=== PATIENT | male | born 1940 | race Caucasian/White ===

== ENCOUNTER 2016-07-17 22:25 | Inpatient (IN) | payer MEDICARE, MEDICAID ==
[2016-07-17] MEDS ORDERED: Acetaminophen 325 MG Tab PO ONE (23:13)
--- NOTE | 2016-07-17 23:16 | EDM.PDOC ---
ED HISTORY OF PRESENT ILLNESS - General Chief Complaint: Respiratory Problem Stated Complaint: COPD Time Seen by Provider: 07/17/16 23:14 Source: Reports: Patient History Limitations: Reports: Other (pt is not able to give a good history. ) - History of Present Illness INITIAL COMMENTS - FREE TEXT/NARRATIVE: pt has a fever of 102 . He has a tachy rhythm and has been breathing rapidly. Timing/Duration: Reports: Hour(s):, Getting worse Severity: moderate Location, General: Reports: chest Associated Symptoms: Reports: cough, diaphoresis, fever/chills, shortness of breath - Related Data Allergies/ADRs: Allergies Allergy/AdvReac Type Severity Reaction Status Date / Time Cephalosporins Allergy Unknown Cannot Verified 07/17/16 23:50 Remember clozapine [From Clozaril] Allergy Unknown Cannot Verified 07/17/16 23:50 Remember erythromycin base Allergy Unknown Cannot Verified 07/17/16 23:50 [Erythromycin Base] Remember Penicillins Allergy Unknown Cannot Verified 07/17/16 23:50 Remember Home Meds: Home Meds Acetaminophen [Tylenol] 650 mg PO TID 01/05/13 [History] Bisacodyl [Dulcolax] 10 mg RECTAL DAILY PRN 01/05/13 [History] Docusate Sodium 100 mg PO BID 01/05/13 [History] Furosemide [Lasix] 40 mg PO BID 01/05/13 [History] Ketoconazole 1 appful TOP ASDIRECTED 01/05/13 [History] LORazepam 1 mg PO BID PRN 01/05/13 [History] Loratadine [Claritin] 10 mg PO DAILY 01/05/13 [History] OLANZapine [ZyPREXA] 5 mg PO TID PRN 01/05/13 [History] Omeprazole 20 mg PO DAILY 01/05/13 [History] Polyethylene Glycol 3350 [MiraLAX] 17 gm PO DAILY 01/05/13 [History] Psyllium Husk/Aspartame [Metamucil Sugar Free Powder] 2 tsp PO DAILY 01/05/13 [ History] Simvastatin [Zocor] 20 mg PO BEDTIME 01/05/13 [History] Terbinafine [LamISIL AT 1% Crm] 1 percent TOP ASDIRECTED PRN 01/05/13 [History] Triamcinolone Acetonide [Triamcinolone Acetonide 0.1% Crm] 15 gm TOP DAILY PRN 01/05/13 [History] Oxybutynin 5 mg PO TID 04/17/15 [History] predniSONE [Prednisone] 5 mg PO DAILY 04/17/15 [History] Magnesium Hydroxide [Milk of Magnesia] 30 ml PO DAILY PRN 09/25/15 [History] Na Phos,M-B/Na Phos,Di-Ba [Fleet Enema] 1 enema RECTAL BID PRN 02/05/16 [History ] Zinc Oxide/Aloe Vera/Vitamin E [Balmex 11.3% Diaper Rash] 1 gm TP BID 02/05/16 [ History] Albuterol/Ipratropium [DuoNeb 3.0-0.5 MG/3 ML] 3 ml INH TID 05/31/16 [History] Budesonide [Pulmicort] 0.25 mg INH BID 05/31/16 [History] Cefdinir [Omnicef 250 MG/5 ML Susp] 250 mg PO BID 05/31/16 [History] Metoprolol Tartrate 25 mg PO BID 05/31/16 [History] Valproic Acid (As Sodium Salt) [Valproic Acid] 20 ml PO PCBREAKFAST 05/31/16 [ History] Valproic Acid (As Sodium Salt) [Valproic Acid] 40 ml PO PCDINNER 05/31/16 [ History] Tobramycin [Nebcin] 480 mg IV Q24H #10 dose 06/05/16 [Rx] Past Medical History HEENT History: Reports: Allergic rhinitis, Impaired vision Cardiovascular History: Reports: Heart Failure, High cholesterol, Hypertension Respiratory History: Reports: Sleep apnea, SOB, Other (see below) Other Respiratory History: c pap. home O2 as needed Gastrointestinal History: Reports: Chronic constipation, GERD Other Gastrointestinal History: intucception Genitourinary History: Reports: Other (see below) Other Genitourinary History: Long standing rodriguez catheter. Musculoskeletal History: Reports: Back pain, chronic Neurological History: Reports: Other (see below) Other Neuro History: Brain atrophy Psychiatric History: Reports: Schizophrenia Endocrine/Metabolic History: Reports: Obesity/BMI 30+ Oncologic (Cancer) History: Reports: Other (see below) Other Oncologic History: skin cancer Dermatologic History: Reports: Other (see below) Other Dermatologic History: rashes - Infectious Disease History Infectious Disease History: Reports: Chicken pox Other Infectious Disease History: unable to obtain - Past Surgical History Head Surgeries/Procedures: Reports: Craniotomy Other Neurological Surgeries/Procedures: l parietal craniotomy for evacuation of subdural hematoma Social & Family History - Family History Family Medical History: Unobtainable - Tobacco Use Smoking Status *Q: Unknown Ever Smoked Used Tobacco, but Quit: Yes Month Tobacco Last Used: unknown Second Hand Smoke Exposure: No - Caffeine Use Caffeine Use: Reports: Coffee Other Caffeine Use: unknown - Recreational Drug Use Recreational Drug Use: No - Living Situation & Occupation Living situation: Reports: single Occupation: disabled (disabled, lives in [employer] ED ROS GENERAL - Review of Systems Review Of Systems: See Below Constitutional: Reports: fever, chills, malaise, diaphoresis HEENT: Reports: No symptoms Respiratory: Reports: shortness of breath, other ( rapid resperations. ) Cardiovascular: Reports: Palpitations, Other (pt has a rapid heart rate. ) Endocrine: Reports: no symptoms GI/Abdominal: Reports: No symptoms : Reports: other ( indwelling rodriguez cath. ) Musculoskeletal: Reports: no symptoms Skin: Reports: no symptoms Neurological: Reports: trouble speaking ED EXAM, GENERAL - Physical Exam Exam: See Below Free Text/Narrative:: pt arrived with a fever of 102. He has a tachy. His resp were rapid. Exam Limited By: No limitations General Appearance: alert, anxious, moderate distress Ears: normal TMs Nose: normal inspection Throat/Mouth: Normal inspection Head: atraumatic Neck: normal inspection Respiratory/Chest: other (pt is breathing rapidly) Cardiovascular: regular rate, rhythm, tachycardia, other (pt is having some ectopics. ) GI/Abdominal: soft, non tender, other ( abdoman is large and a little difficult to evaluate. ) (Male) Exam: Other (pt has a rodriguez cath in place. ) Rectal (Males) Exam: Deferred Back Exam: normal inspection Extremities: normal inspection Neurological: alert Course - Vital Signs Last Recorded V/S: Last Vital Signs Temp 39.3 C H 07/17/16 23:27 Pulse 144 H 07/17/16 23:27 Resp 16 07/17/16 23:27 BP 135/106 H 07/17/16 23:27 Pulse Ox 91 L 07/17/16 23:27 - Orders/Labs/Meds Orders: Active Orders 24 hr Category Date Time Status EKG Documentation Completion [RC] ASDIRECTED Care 07/17/16 23:17 Active Chest 1V Frontal [CR] Stat Exams 07/17/16 22:37 Taken CULTURE BLOOD [BC] Urgent Lab 07/17/16 23:12 Received CULTURE BLOOD [BC] Urgent Lab 07/17/16 23:15 Received CULTURE URINE [RM] Stat Lab 07/17/16 23:50 Uncollected LACTIC ACID [CHEM] Stat Lab 07/17/16 23:59 Ordered Levofloxacin/Dextrose 5%-Water [Levaquin in D5W 500 MG/ Med 07/17/16 23:52 Ordered 100 ML] 500 mg Premix Bag 1 bag IV ONETIME Sodium Chloride 0.9% [Normal Saline] 1,000 ml Med 07/17/16 23:45 Ordered IV ASDIRECTED Blood Culture x2 Reflex Set [OM.PC] Urgent Oth 07/17/16 22:47 Ordered EKG 12 Lead [EK] Routine Ther 07/17/16 23:17 Ordered Medication Orders Sodium Chloride (Normal Saline) 1,000 mls @ 400 mls/hr IV ASDIRECTED VERONICA Levofloxacin/Dextrose 500 mg/ (Premix) 100 mls @ 100 mls/hr IV ONETIME ONE Stop: 07/18/16 00:51 Labs: Laboratory Tests 07/17/16 07/17/16 07/17/16 Range/Units 22:37 22:37 23:05 WBC 15.4 H (4.5-11.0) K/uL RBC 4.40 (4.30-5.90) M/uL Hgb 13.1 (12.0-15.0) g/dL Hct 41.8 (40.0-54.0) % MCV 95 (80-98) fL MCH 30 (27-31) pg MCHC 31 L (32-36) % Plt Count 235 (150-400) K/uL Neut % (Auto) 74 H (36-66) % Lymph % (Auto) 11 L (24-44) % Tyrrell % (Auto) 14 H (2-6) % Eos % (Auto) 1 L (2-4) % Baso % (Auto) 0 (0-1) % Sodium 139 L (140-148) mmol/L Potassium 3.5 L (3.6-5.2) mmol/L Chloride 98 L (100-108) mmol/L Carbon Dioxide 30 (21-32) mmol/L Anion Gap 14.5 H (5.0-14.0) mmol/L BUN 22 H D (7-18) mg/dL Creatinine 1.2 (0.8-1.3) mg/dL Est Cr Clr Drug Dosing 53.24 mL/min Estimated GFR (MDRD) 59 L (>60) Glucose 131 H (74-106) mg/dL Calcium 9.2 (8.5-10.1) mg/dL Total Bilirubin 0.4 (0.2-1.0) mg/dL AST 9 L (15-37) U/L ALT 10 L (12-78) U/L Alkaline Phosphatase 34 L (46-116) U/L C-Reactive Protein 11.33 H (0.0-0.3) mg/dL [id number] Pept (5-125) pg/mL Total Protein 8.4 H (6.4-8.2) g/dL Albumin 2.9 L (3.4-5.0) g/dL Globulin 5.5 H (2.3-3.5) g/dL Albumin/Globulin Ratio 0.5 L (1.2-2.2) Urine Color [place] Urine Appearance Cloudy Urine pH 8.0 (4.5-8.0) Ur Specific [place] 1.015 (1.008-1.030) Urine Protein 30 H (NEGATIVE) mg/dL Urine Glucose (UA) Normal (NEGATIVE) mg/dL Urine Ketones 15 H (NEGATIVE) mg/dL Urine Occult Blood Large (NEGATIVE) Urine Nitrite Positive H (NEGAITVE) Urine Bilirubin Negative (NEGATIVE) Urine Urobilinogen 4 (NORMAL) mg/dL Ur Leukocyte Esterase Large (NEGATIVE) Urine RBC Packed H (0-5) Urine WBC Packed H (0-5) Ur Epithelial Cells Moderate Amorphous Sediment Moderate Urine Bacteria Moderate Urine Mucus Few 07/17/16 Range/Units 23:17 WBC (4.5-11.0) K/uL RBC (4.30-5.90) M/uL Hgb (12.0-15.0) g/dL Hct (40.0-54.0) % MCV (80-98) fL MCH (27-31) pg MCHC (32-36) % Plt Count (150-400) K/uL Neut % (Auto) (36-66) % Lymph % (Auto) (24-44) % Tyrrell % (Auto) (2-6) % Eos % (Auto) (2-4) % Baso % (Auto) (0-1) % Sodium (140-148) mmol/L Potassium (3.6-5.2) mmol/L Chloride (100-108) mmol/L Carbon Dioxide (21-32) mmol/L Anion Gap (5.0-14.0) mmol/L BUN (7-18) mg/dL Creatinine (0.8-1.3) mg/dL Est Cr Clr Drug Dosing mL/min Estimated GFR (MDRD) (>60) Glucose (74-106) mg/dL Calcium (8.5-10.1) mg/dL Total Bilirubin (0.2-1.0) mg/dL AST (15-37) U/L ALT (12-78) U/L Alkaline Phosphatase (46-116) U/L C-Reactive Protein (0.0-0.3) mg/dL [id number] Pept 366 H (5-125) pg/mL Total Protein (6.4-8.2) g/dL Albumin (3.4-5.0) g/dL Globulin (2.3-3.5) g/dL Albumin/Globulin Ratio (1.2-2.2) Urine Color Urine Appearance Urine pH (4.5-8.0) Ur Specific [place] (1.008-1.030) Urine Protein (NEGATIVE) mg/dL Urine Glucose (UA) (NEGATIVE) mg/dL Urine Ketones (NEGATIVE) mg/dL Urine Occult Blood (NEGATIVE) Urine Nitrite (NEGAITVE) Urine Bilirubin (NEGATIVE) Urine Urobilinogen (NORMAL) mg/dL Ur Leukocyte Esterase (NEGATIVE) Urine RBC (0-5) Urine WBC (0-5) Ur Epithelial Cells Amorphous Sediment Urine Bacteria Urine Mucus Meds: Medications Generic Name Dose Route Start Last Admin Trade Name Freq PRN Reason Stop Dose Admin Sodium Chloride 1,000 mls @ 400 mls/hr 07/17/16 23:45 Normal Saline IV ASDIRECTED VERONICA Levofloxacin/Dextrose 500 mg/ 100 mls @ 100 mls/hr 07/17/16 23:52 Premix IV 07/18/16 00:51 ONETIME ONE Discontinued Medications Generic Name Dose Route Start Last Admin Trade Name Reina PRN Reason Stop Dose Admin Acetaminophen 650 mg 07/17/16 23:13 07/17/16 23:25 Tylenol PO 07/17/16 23:14 650 mg NOW ONE Administration - Re-Assessments/Exams Free Text/Narrative Re-Assessment/Exam: 07/18/16 00:06 bnp is up slightly, urine looks infected. His wbc is 15,000. His crp is greater than 11. Lactic acid is pending. Departure - Departure Time of Disposition: 00:07 Disposition: Admitted As Inpatient 68 Condition: fair Clinical Impression: Sepsis, Dehydration Forms: ED Department Discharge Care Plan Goals: admit to Dr De Souza. - My Orders Last 24 Hours: My Active Orders 07/17/16 22:37 Chest 1V Frontal [CR] Stat 07/17/16 22:47 Blood Culture x2 Reflex Set [OM.PC] Urgent 07/17/16 23:12 CULTURE BLOOD [BC] Urgent 07/17/16 23:15 CULTURE BLOOD [BC] Urgent 07/17/16 23:17 EKG Documentation Completion [RC] ASDIRECTED EKG 12 Lead [EK] Routine 07/17/16 23:45 Sodium Chloride 0.9% [Normal Saline] 1,000 ml IV ASDIRECTED 07/17/16 23:50 CULTURE URINE [RM] Stat 07/17/16 23:52 Levofloxacin/Dextrose 5%-Water [Levaquin in D5W 500 MG/100 ML] 500 mg Premix Bag 1 bag IV ONETIME 07/17/16 23:59 LACTIC ACID [CHEM] Stat - Assessment/Plan Last 24 Hours: My Active Orders 07/17/16 22:37 Chest 1V Frontal [CR] Stat 07/17/16 22:47 Blood Culture x2 Reflex Set [OM.PC] Urgent 07/17/16 23:12 CULTURE BLOOD [BC] Urgent 07/17/16 23:15 CULTURE BLOOD [BC] Urgent 07/17/16 23:17 EKG Documentation Completion [RC] ASDIRECTED EKG 12 Lead [EK] Routine 07/17/16 23:45 Sodium Chloride 0.9% [Normal Saline] 1,000 ml IV ASDIRECTED 07/17/16 23:50 CULTURE URINE [RM] Stat 07/17/16 23:52 Levofloxacin/Dextrose 5%-Water [Levaquin in D5W 500 MG/100 ML] 500 mg Premix Bag 1 bag IV ONETIME 07/17/16 23:59 LACTIC ACID [CHEM] Stat
[2016-07-17] MEDS ORDERED: Sodium Chloride 0.9% 1,000 ML IV SCH (23:45)
[2016-07-17] MEDS ORDERED: Levofloxacin/Dextrose 5%-Water 500 MG in Premix Bag 1 BAG IV ONE (23:52)
[2016-07-18] MEDS ORDERED: Promethazine 6.25 MG in Sodium Chloride 0.9% 50 ML IV PRN (00:59)
[2016-07-18] MEDS ORDERED: Potassium Chloride 40 MEQ in Premix Bag 1 BAG IV ONE (01:06)
[2016-07-18] MEDS ORDERED: Acetaminophen 325 MG Tab PO PRN (01:11)
[2016-07-18] MEDS ORDERED: LORazepam 1 MG Tab PO ONE (01:21)
[2016-07-18] MEDS ORDERED: Metoprolol Tartrate 25 MG Tab PO SCH (01:30)
[2016-07-18] MEDS ORDERED: TOBRAMYCIN IV SCH ×2 (01:30→03:00)
[2016-07-18] MEDS ORDERED: SODIUM CHLORIDE 0.9% IV SCH ×2 (01:30→03:00)
[2016-07-18] MEDS ORDERED: Sodium Chloride 0.9% 1,000 ML IV SCH ×3 (01:45→15:00)
--- NOTE | 2016-07-18 02:10 | PCM.HP ---
H&P History of Present Illness - General Date of Service: 07/18/16 Admit Problem/Dx: Admission Diagnosis/Problem Admission Diagnosis/Problem Urosepsis Source of Information: Patient, EMS notes reviewed, assisted records, Old records History Limitations: Reports: Altered mental status, Other - History of Present Illness Initial Comments - Free Text/Narative: 75-year-old male with past medical history of paranoid schizophrenia, hypertension,hyperlipidemia,recurrent urinary tract infection, morbid obesity, obstructive sleep apnea, chronic constipation, COPD, former smoker, idiopathic weakness of bilateral lower extremity came to the ED with the complaining of altered mental status associated with increased temperature. Patient has been living in custodial. Patient today accompanied with consumer experience consultant. As per the consumer experience consultant patient has been suffering with upper respiratory symptoms cough, congestion since last 2 weeks and intermittent fever since last 3 days. The fever was responded to the Tylenol. Patient has a history of recurrent urinary tract infection treated with IV antibiotics. 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 He had breathing difficulty associated with confusion state, with these concerns patient came to the ED. In the ED patient had basic blood work including UA which showed urinary tract infection with nitrites positive. Patient recently admitted into the hospital with similar complaint and diagnosed with Pseudomonas urinary tract infection and treated with meropenem and tobramycin. Patient has been on cefdinir antibiotic prophylaxis medication as outpatient. Patient had indwelling urinary catheter since last approximately 2 years with the concerns of obstructive uropathy. Patient did not follow with any urology in the last 2 years. Patient has significant obesity and has baseline of 6 L oxygen during the nighttime continuously and daytime as needed. Patient is on CPAP machine for sleep apnea. Patient CODE STATUS is DNR/DNI. Onset of Symptoms: Reports: gradual Duration of Symptoms: Reports: Day(s): (2) Location: Reports: other (groin) Quality: Reports: Burning, Dull Severity: moderate Improves with: Reports: None Worsens with: Reports: None Context: Denies: sick contact, activity/exercise, lifting, trauma Associated Symptoms: Reports: fever/chills, malaise, shortness of breath, weakness. Denies: chest pain, cough, diaphoresis, loss of appetite, nausea/ vomiting, rash, seizure, syncope groin Pain Score (Numeric/FACES): 3 - Related Data Allergies/Adverse Reactions: Allergies Allergy/AdvReac Type Severity Reaction Status Date / Time Cephalosporins Allergy Unknown Cannot Verified 07/17/16 23:50 Remember clozapine [From Clozaril] Allergy Unknown Cannot Verified 07/17/16 23:50 Remember erythromycin base Allergy Unknown Cannot Verified 07/17/16 23:50 [Erythromycin Base] Remember Penicillins Allergy Unknown Cannot Verified 07/17/16 23:50 Remember Home Medications: Home Meds Acetaminophen [Tylenol] 650 mg PO TID 01/05/13 [History] Bisacodyl [Dulcolax] 10 mg RECTAL DAILY PRN 01/05/13 [History] Docusate Sodium 10 ml PO BID 01/05/13 [History] Furosemide [Lasix] 40 mg PO BID 01/05/13 [History] Ketoconazole 1 appful TOP ASDIRECTED 01/05/13 [History] LORazepam 1 mg PO BID PRN 01/05/13 [History] Loratadine [Claritin] 10 mg PO DAILY 01/05/13 [History] OLANZapine [ZyPREXA] 5 mg PO TID PRN 01/05/13 [History] Omeprazole 20 mg PO DAILY 01/05/13 [History] Polyethylene Glycol 3350 [MiraLAX] 17 gm PO DAILY 01/05/13 [History] Psyllium Husk/Aspartame [Metamucil Sugar Free Powder] 2 tsp PO DAILY 01/05/13 [ History] Simvastatin [Zocor] 20 mg PO BEDTIME 01/05/13 [History] Terbinafine [LamISIL AT 1% Crm] 1 percent TOP ASDIRECTED PRN 01/05/13 [History] Triamcinolone Acetonide [Triamcinolone Acetonide 0.1% Crm] 15 gm TOP DAILY PRN 01/05/13 [History] Oxybutynin 5 mg PO TID 04/17/15 [History] predniSONE [Prednisone] 5 mg PO DAILY 04/17/15 [History] Magnesium Hydroxide [Milk of Magnesia] 30 ml PO DAILY PRN 09/25/15 [History] Na Phos,M-B/Na Phos,Di-Ba [Fleet Enema] 1 enema RECTAL BID PRN 02/05/16 [History ] Zinc Oxide/Aloe Vera/Vitamin E [Balmex 11.3% Diaper Rash] 1 gm TP BID 02/05/16 [ History] Albuterol/Ipratropium [DuoNeb 3.0-0.5 MG/3 ML] 3 ml INH TID 05/31/16 [History] Budesonide [Pulmicort] 0.25 mg INH BID 05/31/16 [History] Metoprolol Tartrate 25 mg PO BID 05/31/16 [History] Valproic Acid (As Sodium Salt) [Valproic Acid] 20 ml PO PCBREAKFAST 05/31/16 [ History] Valproic Acid (As Sodium Salt) [Valproic Acid] 40 ml PO PCDINNER 05/31/16 [ History] QUEtiapine [SEROquel] 100 mg PO BID 07/17/16 [History] Ketoconazole [Nizoral 2% Crm] 1 applic TOP BID 07/18/16 [History] Past Medical History HEENT History: Reports: Allergic rhinitis, Impaired vision Other HEENT History: no teeth Cardiovascular History: Reports: Heart Failure, High cholesterol, Hypertension Respiratory History: Reports: Sleep apnea, SOB, Other (see below) Other Respiratory History: c pap. home O2 as needed Gastrointestinal History: Reports: Chronic constipation, GERD Other Gastrointestinal History: intucception Genitourinary History: Reports: Other (see below) Other Genitourinary History: Long standing rodriguez catheter. Musculoskeletal History: Reports: Back pain, chronic Neurological History: Reports: Other (see below) Other Neuro History: Brain atrophy Psychiatric History: Reports: Schizophrenia Endocrine/Metabolic History: Reports: Obesity/BMI 30+ Oncologic (Cancer) History: Reports: Other (see below) Other Oncologic History: skin cancer Dermatologic History: Reports: Other (see below) Other Dermatologic History: rashes - Infectious Disease History Infectious Disease History: Reports: Chicken pox Other Infectious Disease History: unable to obtain - Past Surgical History Head Surgeries/Procedures: Reports: Craniotomy Other Neurological Surgeries/Procedures: l parietal craniotomy for evacuation of subdural hematoma Social & Family History - Family History Family Medical History: Unobtainable - Tobacco Use Smoking Status *Q: Unknown Ever Smoked Used Tobacco, but Quit: Yes Month Tobacco Last Used: unknown Second Hand Smoke Exposure: No - Caffeine Use Caffeine Use: Reports: Coffee Other Caffeine Use: unknown - Recreational Drug Use Recreational Drug Use: No - Living Situation & Occupation Living situation: Reports: single Occupation: disabled (disabled, lives in [facility] H&P Review of Systems - Review of Systems: Review Of Systems: See Below General: Reports: fever, chills, malaise, weakness, fatigue, decreased appetite. Denies: night sweats, diaphoresis, weight loss Pulmonary: Reports: Shortness of Breath. Denies: Wheezing, Pleuritic Chest Pain , Cough, Sputum, Hemoptysis Cardiovascular: Reports: dyspnea on exertion. Denies: chest pain, palpitations , orthopnea, PND, edema, claudication, blood pressure problem Gastrointestinal: Reports: Distension. Denies: Abdominal pain, Anorexia, Flatus Genitourinary: Reports: dysuria, burning, pain, incontinence, hematuria. Denies : frequency, penile discharge Skin: Denies: cyanosis, jaundice, pallor Psychiatric: Reports: confusion. Denies: depression, mood lability, anxiety Neurological: Reports: Confusion. Denies: Dizziness, Headache Hematologic/Lymphatic: Denies: anemia, easy bleeding Immunologic: Denies: anaphylaxis Exam - Exam Exam: See Below - Vital Signs Vital Signs: Last Vital Signs Temp 38.5 C H 07/18/16 01:01 Pulse 144 H 07/17/16 23:27 Resp 23 H 07/18/16 01:01 BP 137/91 H 07/18/16 01:30 Pulse Ox 92 L 07/18/16 01:30 Weight: 101.9 kg - Exam Quality Assessment: supplemental oxygen General: alert, moderate distress. No: oriented, cooperative Neck: supple, trachea midline Lungs: Clear to auscultation, Normal respiratory effort Cardiovascular: irregular rhythm, tachycardia. No: regular rate, regular rhythm , diastolic murmur Abdomen: distention, hypoactive bowel sounds. No: guarding, rigidity, rebound, tenderness, absent bowel sounds (Male) Exam: Normal inspection, Other (Rodriguez is in place). No: No hernia Extremities: normal inspection - Patient Data Lab Results last 24 hrs: Laboratory Results - last 24 hr 07/18/16 Range/Units 01:08 Magnesium 1.8 (1.8-2.4) mg/dL Troponin I < 0.017 (0.000-0.056) ng/mL Result Diagrams: 07/18/16 04:45 07/18/16 04:45 *Q Meaningful Use (ADM) - VTE *Q VTE Criteria *Q: - Stroke *Q Stroke Criteria *Q: - AMI *Q AMI Criteria *Q: - Problem List (1) Paranoid schizophrenia SNOMED Code(s): 38351487 ICD Code: F20.0 - PARANOID SCHIZOPHRENIA Status: Acute Current Visit: Yes (2) Hypokalemia SNOMED Code(s): 22477348 ICD Code: E87.6 - HYPOKALEMIA Status: Acute Current Visit: Yes (3) Hypertension SNOMED Code(s): 39406564 ICD Code: I10 - ESSENTIAL (PRIMARY) HYPERTENSION Status: Acute Current Visit: Yes (4) Hyperlipidemia SNOMED Code(s): 34949131 ICD Code: E78.5 - HYPERLIPIDEMIA, UNSPECIFIED Status: Acute Current Visit : Yes (5) Anxiety and depression SNOMED Code(s): 585700098 ICD Code: F41.9 - ANXIETY DISORDER, UNSPECIFIED; F32.9 - MAJOR DEPRESSIVE DISORDER, SINGLE EPISODE, UNSPECIFIED Status: Acute Current Visit: Yes (6) Obstructive sleep apnea SNOMED Code(s): 64063426 ICD Code: G47.33 - OBSTRUCTIVE SLEEP APNEA (ADULT) (PEDIATRIC) Status: Acute Current Visit: Yes (7) COPD (chronic obstructive pulmonary disease) SNOMED Code(s): 50862296 ICD Code: J44.9 - CHRONIC OBSTRUCTIVE PULMONARY DISEASE, UNSPECIFIED Status : Acute Current Visit: Yes (8) Complicated urinary tract infection SNOMED Code(s): 51873455 ICD Code: N39.0 - URINARY TRACT INFECTION, SITE NOT SPECIFIED Status: Acute Current Visit: Yes (9) Severe sepsis SNOMED Code(s): 16713811 ICD Code: A41.9 - SEPSIS, UNSPECIFIED ORGANISM; R65.20 - SEVERE SEPSIS WITHOUT SEPTIC SHOCK Status: Acute Current Visit: Yes (10) Supraventricular tachycardia SNOMED Code(s): 8693823 ICD Code: I47.1 - SUPRAVENTRICULAR TACHYCARDIA Status: Acute Current Visit: Yes (11) GERD (gastroesophageal reflux disease) SNOMED Code(s): 664808472 ICD Code: K21.9 - GASTRO-ESOPHAGEAL REFLUX DISEASE WITHOUT ESOPHAGITIS Status: Acute Current Visit: Yes (12) Dehydration SNOMED Code(s): 75467417 ICD Code: E86.0 - DEHYDRATION Status: Acute Current Visit: Yes (13) Sepsis SNOMED Code(s): 24773303 ICD Code: A41.9 - SEPSIS, UNSPECIFIED ORGANISM Status: Acute Current Visit: Yes (14) UTI (urinary tract infection) SNOMED Code(s): 84914023 ICD Code: N39.0 - URINARY TRACT INFECTION, SITE NOT SPECIFIED Status: Acute Current Visit: Yes Problem List Initiated/Reviewed/Updated: Yes Orders Last 24hrs: Active Orders 24 hr Category Date Time Status Pharmacy Consult [Consult to Pharmacy] [CONS] Routine Cons 07/18/16 01:55 Active Acetaminophen [Tylenol] Med 07/18/16 01:11 Active 650 mg PO Q6H PRN Furosemide [Lasix] Med 07/18/16 09:00 Ordered 40 mg PO BID Insulin Aspart [NovoLOG] Med 07/18/16 07:30 Ordered See Dose Instructions SUBCUT BIDAC Meropenem [Merrem] 1 gm Med 07/18/16 01:45 Active Sodium Chloride 0.9% [Normal Saline] 50 ml IV Q8H Metoprolol Tartrate [Lopressor] Med 07/18/16 01:30 Active 25 mg PO Q12H Potassium Chloride [KCL 40 MEQ in Water 100 ML] 40 meq Med 07/18/16 01:06 Active Premix Bag 1 bag IV ONETIME Sodium Chloride 0.9% [Normal Saline] 1,000 ml Med 07/18/16 01:45 Active IV ASDIRECTED Tobramycin [Nebcin] 0 mg Med 07/18/16 01:30 Pending Sodium Chloride 0.9% [Normal Saline] 250 ml IV ASDIRECTED Medication Orders Acetaminophen (Tylenol) 650 mg PO Q6H PRN PRN Reason: Fever Albuterol/Ipratropium (Duoneb 3.0-0.5 Mg/3 Ml) 3 ml NEB QID PRN PRN Reason: Shortness Of Breath/wheezing Furosemide (Lasix) 40 mg PO BIDDIURETIC [facility] Sodium Chloride (Normal Saline) 1,000 mls @ 400 mls/hr IV ASDIRECTED [facility] Last Admin: 07/18/16 00:11 Dose: 400 mls/hr Promethazine HCl 6.25 mg/ (Sodium Chloride) 50.25 mls @ 200 mls/hr IV Q6H PRN PRN Reason: Nausea/Vomiting Potassium Chloride 40 meq/ (Premix) 100 mls @ 25 mls/hr IV ONETIME ONE Stop: 07/18/16 05:05 Tobramycin / Sodium Chloride 250 mls @ 250 mls/hr IV ASDIRECTED [facility] Meropenem 1 gm/ Sodium (Chloride) 50 mls @ 100 mls/hr IV Q8H [facility] Sodium Chloride (Normal Saline) 1,000 mls @ 150 mls/hr IV ASDIRECTED [facility] Insulin Aspart (Novolog) 0 unit SUBCUT BIDAC [facility] PRN Reason: Protocol Metoprolol Tartrate (Lopressor) 25 mg PO Q12H [facility] Assessment/Plan Comment:: 75-year-old male with past medical history of recurrent urinary tract infection came to the ED with the complaining of shortness of breath with increased temperature and admitted in the ICU with common diagnosis of complicated urinary tract infection and urosepsis. (8) Complicated urinary tract infection (9) Severe sepsis (12) Dehydration uA showed positive WBC and nitrates positive patient has past medical history of Pseudomonas infection sensitive to tobramycin and meropenem Started tobramycin and meropenem Collected urine culture, blood cultures Placed on 150 mL per hour IV. Maintenance saline Lactic acid 3.0, will repeat in the morning Will follow urine culture report remaining as per ICU protocol (10) Supraventricular tachycardia (2) Hypokalemia K was 3.5, replaced with 40 mEqIV Mg is 1.8 Supra ventricular tachycardia due to underlying severe sepsis Patient is on metoprolol 25 mg twice daily restarted home medication (3) Hypertension continue home medication (4) Hyperlipidemia continue home medication (5) Anxiety and depression (1) Paranoid schizophrenia continue home medication (6) Obstructive sleep apnea continue home medication and CPAP (7) COPD (chronic obstructive pulmonary disease) DuoNeb albuterol as needed (11) GERD (gastroesophageal reflux disease) continue home medication CODE STATUS DNR/DNI Diet mechanical soft diet IV fluids 150 mL per hour NS GI prophylaxis omeprazole 40 mg daily DVT prophylaxis Lovenox 40 mg subcutaneous daily
[2016-07-18] MEDS ORDERED: Metoprolol Tartrate 50 MG Tab ONE (02:22)
[2016-07-18] MEDS: Potassium Chloride 20 MEQ in Premix Bag 1 BAG IV SCH ×2 (02:36→05:31)
[2016-07-18] MEDS: Lidocaine 1% PF 2 ML SDV INJECT SCH ×2 (02:37→05:32)
[2016-07-18] MEDS ORDERED: Potassium Chloride 20 MEQ in Premix Bag 2 BAG IV SCH (03:00)
[2016-07-18] MEDS ORDERED: Furosemide 40 MG Tab PO SCH (08:00)
[2016-07-18] MEDS: Insulin Aspart 100 Units/ML 3 ML Pen SUBCUT SCH ×2 (08:32→16:43)
--- NOTE | 2016-07-18 08:39 | CR ---
Moderate cardiomegaly. Right lung is clear. Increasing density left lung base. Findings concerning f or developing infiltrate.
--- NOTE | 2016-07-18 09:51 | PCM.PN ---
- General Info Date of Service: 07/18/16 - Review of Systems General: Reports: Fever Gastrointestinal: Denies: Abdominal pain Genitourinary: Reports: other (penis and scrotum pain) Systems Review Comment:: no acute events since the time of admission. Heart rate has improved but his blood pressure has decreased. Blood pressures are now on the low side of normal. Lactic acid level has normalized. Temperatures have improved some since arrival to the emergency room. He is complaining of both penis and scrotum pain. He states that people have been tender since he shaved his scrotum a couple of days ago. No complaints of abdominal pain. No nausea or vomiting. He is alert and interactive. - Patient Data Vitals - most recent: Last Vital Signs Temp 37.6 C 07/18/16 08:00 Pulse 96 07/18/16 08:37 Resp 20 07/18/16 08:37 BP 99/66 07/18/16 08:37 Pulse Ox 94 L 07/18/16 08:37 Weight - most recent: 107.59 kg I&O - last 24 hours: Intake & Output 07/17/16 07/18/16 07/18/16 22:59 06:59 14:59 Intake Total 736 Output Total 250 Balance 486 Lab Results last 24 hrs: Laboratory Results - last 24 hr 07/18/16 07/18/16 07/18/16 Range/Units 01:08 04:45 04:45 WBC 16.6 H (4.5-11.0) K/uL RBC 3.80 L (4.30-5.90) M/uL Hgb 11.3 L (12.0-15.0) g/dL Hct 36.3 L (40.0-54.0) % MCV 96 (80-98) fL MCH 30 (27-31) pg MCHC 31 L (32-36) % Plt Count 188 (150-400) K/uL Neut % (Auto) 74 H (36-66) % Lymph % (Auto) 9 L (24-44) % [place] % (Auto) 17 H (2-6) % Eos % (Auto) 0 L (2-4) % Baso % (Auto) 0 (0-1) % Sodium 140 (140-148) mmol/L Potassium 3.9 (3.6-5.2) mmol/L Chloride 103 (100-108) mmol/L Carbon Dioxide 29 (21-32) mmol/L Anion Gap 8.1 (5.0-14.0) mmol/L BUN 23 H (7-18) mg/dL Creatinine 1.1 (0.8-1.3) mg/dL Est Cr Clr Drug Dosing 58.08 mL/min Estimated GFR (MDRD) > 60 (>60) Glucose 133 H (74-106) mg/dL Lactic Acid (0.4-2.0) mmol/L Calcium 8.5 (8.5-10.1) mg/dL Magnesium 1.8 (1.8-2.4) mg/dL Total Bilirubin 0.3 (0.2-1.0) mg/dL AST 8 L (15-37) U/L ALT 8 L (12-78) U/L Alkaline Phosphatase 26 L (46-116) U/L Troponin I < 0.017 (0.000-0.056) ng/mL Total Protein 6.9 (6.4-8.2) g/dL Albumin 2.3 L (3.4-5.0) g/dL Globulin 4.6 H (2.3-3.5) g/dL Albumin/Globulin Ratio 0.5 L (1.2-2.2) 07/18/16 Range/Units 04:45 WBC (4.5-11.0) K/uL RBC (4.30-5.90) M/uL Hgb (12.0-15.0) g/dL Hct (40.0-54.0) % MCV (80-98) fL MCH (27-31) pg MCHC (32-36) % Plt Count (150-400) K/uL Neut % (Auto) (36-66) % Lymph % (Auto) (24-44) % [place] % (Auto) (2-6) % Eos % (Auto) (2-4) % Baso % (Auto) (0-1) % Sodium (140-148) mmol/L Potassium (3.6-5.2) mmol/L Chloride (100-108) mmol/L Carbon Dioxide (21-32) mmol/L Anion Gap (5.0-14.0) mmol/L BUN (7-18) mg/dL Creatinine (0.8-1.3) mg/dL Est Cr Clr Drug Dosing mL/min Estimated GFR (MDRD) (>60) Glucose (74-106) mg/dL Lactic Acid 2.0 (0.4-2.0) mmol/L Calcium (8.5-10.1) mg/dL Magnesium (1.8-2.4) mg/dL Total Bilirubin (0.2-1.0) mg/dL AST (15-37) U/L ALT (12-78) U/L Alkaline Phosphatase (46-116) U/L Troponin I (0.000-0.056) ng/mL Total Protein (6.4-8.2) g/dL Albumin (3.4-5.0) g/dL Globulin (2.3-3.5) g/dL Albumin/Globulin Ratio (1.2-2.2) Med Orders - Current: Current Medications Acetaminophen (Tylenol) 650 mg PO Q6H PRN PRN Reason: Fever Albuterol/Ipratropium (Duoneb 3.0-0.5 Mg/3 Ml) 3 ml NEB QID PRN PRN Reason: Shortness Of Breath/wheezing Promethazine HCl 6.25 mg/ (Sodium Chloride) 50.25 mls @ 200 mls/hr IV Q6H PRN PRN Reason: Nausea/Vomiting Tobramycin 570 mg/ Sodium (Chloride) 264.25 mls @ 264.25 mls/hr IV Q24H [facility] Last Admin: 07/18/16 03:49 Dose: 264.25 mls/hr Meropenem 1 gm/ Sodium (Chloride) 50 mls @ 100 mls/hr IV Q8H [facility] Insulin Aspart (Novolog) 0 unit SUBCUT BIDAC [facility] PRN Reason: Protocol Last Admin: 07/18/16 08:32 Dose: Not Given Discontinued Medications Acetaminophen (Tylenol) 650 mg PO NOW ONE Stop: 07/17/16 23:14 Last Admin: 07/17/16 23:25 Dose: 650 mg Furosemide (Lasix) 40 mg PO BIDDIURETIC [facility] Sodium Chloride (Normal Saline) 1,000 mls @ 400 mls/hr IV ASDIRECTED [facility] Last Admin: 07/18/16 00:11 Dose: 400 mls/hr Levofloxacin/Dextrose 500 mg/ (Premix) 100 mls @ 100 mls/hr IV ONETIME ONE Stop: 07/18/16 00:51 Last Admin: 07/18/16 00:11 Dose: 100 mls/hr Potassium Chloride 40 meq/ (Premix) 100 mls @ 25 mls/hr IV ONETIME ONE Stop: 07/18/16 05:05 Meropenem 1 gm/ Sodium (Chloride) 50 mls @ 100 mls/hr IV Q8H [facility] Last Admin: 07/18/16 02:32 Dose: 100 mls/hr Sodium Chloride (Normal Saline) 1,000 mls @ 150 mls/hr IV ASDIRECTED [facility] Last Admin: 07/18/16 03:39 Dose: 150 mls/hr Potassium Chloride 20 meq/ (Premix) 100 mls @ 50 mls/hr IV Q2H [facility] Stop: 07/18/16 06:59 Last Admin: 07/18/16 05:31 Dose: 50 mls/hr Lidocaine HCl (Xylocaine-Mpf 1%) 2 ml INJECT Q2H [facility] Stop: 07/18/16 05:00 Last Admin: 07/18/16 05:32 Dose: 2 ml Lorazepam (Ativan) 1 mg PO ONETIME ONE Stop: 07/18/16 01:22 Last Admin: 07/18/16 02:35 Dose: 1 mg Metoprolol Tartrate (Lopressor) 25 mg PO Q12H [facility] Last Admin: 07/18/16 02:35 Dose: 25 mg Metoprolol Tartrate (Lopressor) Confirm Administered Dose 50 mg .ROUTE .STK-MED ONE Stop: 07/18/16 02:23 Last Admin: 07/18/16 02:35 Dose: Not Given - Exam Quality Assessment: supplemental oxygen General: alert, cooperative, mild distress Neck: supple Lungs: Rales (few at left lung base). No: Wheezing Cardiovascular: Regular Rhythm, Tachycardia Abdomen: bowel sounds present, soft, no tenderness, no distension (Male) Exam: Scrotum tenderness (L), Scrotum tenderness (R), Other (purulent drainage from urethra) Extremities: no edema, no cyanosis Skin: warm, dry Psy/Mental Status: alert, normal affect - Problem List & Annotations (1) Complicated urinary tract infection SNOMED Code(s): 91029029 Code(s): N39.0 - URINARY TRACT INFECTION, SITE NOT SPECIFIED Status: Acute Current Visit: Yes (2) Severe sepsis SNOMED Code(s): 43720762 Code(s): A41.9 - SEPSIS, UNSPECIFIED ORGANISM; R65.20 - SEVERE SEPSIS WITHOUT SEPTIC SHOCK Status: Acute Current Visit: Yes (3) Paranoid schizophrenia SNOMED Code(s): 84169020 Code(s): F20.0 - PARANOID SCHIZOPHRENIA Status: Acute Current Visit: Yes - Problem List Review Problem List Initiated/Reviewed/Updated: Yes - My Orders Last 24 Hours: My Active Orders 07/18/16 09:49 Cardiac Monitoring [RC] .As Directed 07/18/16 10:00 Sodium Chloride 0.9% [Normal Saline] 1,000 ml IV ASDIRECTED 07/18/16 12:00 Sodium Chloride 0.9% [Normal Saline] 1,000 ml IV ASDIRECTED 07/18/16 Lunch Mechanical Soft Diet [DIET] Pureed Diet [DIET] 07/19/16 05:00 BASIC METABOLIC PANEL,BMP [CHEM] Timed CBC W/O DIFF,HEMOGRAM [HEME] Timed (1) MAGNESIUM [CHEM] Timed - Plan Plan:: Assessment and plan - Complicated urinary tract infection with severe sepsis - history of resistant organisms and he is on broad-spectrum antibiotics. 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 Lactic acid level has normalized and heart rate has improved but blood pressure is now low. He is alert and interactive. Cultures are pending. -Continue tobramycin and meropenem -Additional fluid boluses until blood pressure normalizes -Consider vasopressors if blood pressure does not respond to IV fluids -followup cultures -Continue cardiac monitoring Chronic paranoid schizophrenia - no behaviors at this time. Usual medications will be continued. Maintenance issues - - DVT prophylaxis - enoxaparin - GI prophylaxis - proton pump inhibitor - Nutrition - soft diet with thickened liquids - Mondragon catheter - chronic indwelling catheter Disposition - anticipate discharge back to the skilled nursing after the hospital stay Elias Wheeler M.D.
[2016-07-18] MEDS ORDERED: Dimethicone 20%/Zinc Oxide 25% 56 GM Spray Bottle TOP PRN (09:53)
[2016-07-18] MEDS: Albuterol/Ipratropium 3.0-0.5 MG/3 ML Neb Soln NEB PRN ×2 (10:58→20:40)
[2016-07-18] MEDS: Sodium Chloride 0.9% 1,000 ML IV SCH ×2 (13:32→23:25)
[2016-07-18] MEDS ORDERED: OLANZapine 5 MG Tab PO PRN (15:37)
[2016-07-18] MEDS ORDERED: Hydrocortisone Sodium Succinate 100 MG/2 ML SDV IVPUSH ONE (16:30)
[2016-07-18] MEDS: Valproic Acid 250 MG/5 ML Syrup ML (473 ML Bottle) PO SCH (17:25)
[2016-07-18] MEDS: Budesonide 0.25 MG/2 ML Neb Susp INH SCH (20:40)
[2016-07-18] MEDS: Oxybutynin 5 MG Tab PO SCH (20:40)
[2016-07-18] MEDS: QUEtiapine 100 MG Tab PO SCH (20:40)
[2016-07-18] MEDS: LORazepam 1 MG Tab PO PRN (20:40)
[2016-07-19] MEDS: Budesonide 0.25 MG/2 ML Neb Susp INH SCH ×2 (07:07→22:14)
[2016-07-19] MEDS: Enoxaparin 40 MG/0.4 ML Syringe SUBCUT SCH (08:06)
[2016-07-19] MEDS: Insulin Aspart 100 Units/ML 3 ML Pen SUBCUT SCH (08:07)
[2016-07-19] MEDS: Pantoprazole 40 MG Tab.CR PO SCH (08:13)
[2016-07-19] MEDS: QUEtiapine 100 MG Tab PO SCH ×2 (08:13→20:13)
[2016-07-19] MEDS: Valproic Acid 250 MG/5 ML Syrup ML (473 ML Bottle) PO SCH ×3 (08:13→21:26)
[2016-07-19] MEDS: predniSONE 5 MG Tab PO SCH (08:13)
[2016-07-19] MEDS: Oxybutynin 5 MG Tab PO SCH ×3 (08:13→20:13)
[2016-07-19] MEDS ORDERED: SODIUM CHLORIDE 0.9% IV SCH (08:30)
[2016-07-19] MEDS ORDERED: TOBRAMYCIN IV SCH (08:30)
--- NOTE | 2016-07-19 08:39 | PCM.PN ---
- General Info Date of Service: 07/19/16 Functional Status: Reports: pain controlled, tolerating diet - Review of Systems General: Reports: Weakness Gastrointestinal: Denies: Abdominal pain Psychiatric: Reports: confusion Systems Review Comment:: no acute events overnight. Blood pressure has normalized with fluid boluses. He is alert and interactive today. He is refusing to eat saying that he made a promise to God that he would not eat creatures from land or creatures from the sea. He does not endorse abdominal pain. Penis and scrotum pain from yesterday does not endorse today and he states that he got rid of both of them last night. He's not having fevers. Urine culture growing mixed bernard. - Patient Data Vitals - most recent: Last Vital Signs Temp 36.6 C 07/19/16 08:00 Pulse 90 07/19/16 08:00 Resp 20 07/19/16 08:00 BP 120/74 07/19/16 08:00 Pulse Ox 96 07/19/16 08:00 Weight - most recent: 109.6 kg I&O - last 24 hours: Intake & Output 07/18/16 07/19/16 07/19/16 22:59 06:59 14:59 Intake Total 3327 1880 Output Total 500 675 Balance 2827 1205 Lab Results last 24 hrs: Laboratory Results - last 24 hr 07/18/16 07/19/16 07/19/16 Range/Units 13:52 04:20 05:00 WBC 10.8 (4.5-11.0) K/uL RBC 3.32 L (4.30-5.90) M/uL Hgb 10.1 L (12.0-15.0) g/dL Hct 31.9 L (40.0-54.0) % MCV 96 (80-98) fL MCH 30 (27-31) pg MCHC 32 (32-36) % Plt Count 185 (150-400) K/uL Sodium 139 L (140-148) mmol/L Potassium 4.5 (3.6-5.2) mmol/L Chloride 108 (100-108) mmol/L Carbon Dioxide 23 (21-32) mmol/L Anion Gap 12.5 (5.0-14.0) mmol/L BUN 16 (7-18) mg/dL Creatinine 0.8 (0.8-1.3) mg/dL Est Cr Clr Drug Dosing 79.86 mL/min Estimated GFR (MDRD) > 60 (>60) Glucose 108 H (74-106) mg/dL Calcium 8.3 L (8.5-10.1) mg/dL Magnesium 1.7 L (1.8-2.4) mg/dL Random Tobramycin 4.4 Med Orders - Current: Current Medications Acetaminophen (Tylenol) 650 mg PO Q6H PRN PRN Reason: Fever Albuterol/Ipratropium (Duoneb 3.0-0.5 Mg/3 Ml) 3 ml NEB QID PRN PRN Reason: Shortness Of Breath/wheezing Last Admin: 07/18/16 20:40 Dose: 3 ml Budesonide (Pulmicort) 0.25 mg INH BIDRT [facility] Last Admin: 07/19/16 07:07 Dose: 0.25 mg Ciprofloxacin (Ciprofloxacin Hcl) 500 mg PO BID [facility] Dimethicone/Zinc Oxide (Rash Relief-Zinc Oxide [place]) 0 gm TOP ASDIRECTED PRN PRN Reason: Rash Last Admin: 07/18/16 13:33 Dose: 1 applic Enoxaparin Sodium (Lovenox) 40 mg SUBCUT DAILY [facility] Last Admin: 07/19/16 08:06 Dose: 40 mg Promethazine HCl 6.25 mg/ (Sodium Chloride) 50.25 mls @ 200 mls/hr IV Q6H PRN PRN Reason: Nausea/Vomiting Meropenem 1 gm/ Sodium (Chloride) 50 mls @ 100 mls/hr IV Q8H [facility] Stop: 07/20/16 04:00 Last Admin: 07/19/16 01:51 Dose: 100 mls/hr Tobramycin 480 mg/ Sodium (Chloride) 162 mls @ 105 mls/hr IV Q24H [facility] Stop: 07/19/16 18:00 Lorazepam (Ativan) 1 mg PO BID PRN PRN Reason: Anxiety Last Admin: 07/18/16 20:40 Dose: 1 mg Olanzapine (Zyprexa) 5 mg PO TID PRN PRN Reason: Agitation Last Admin: 07/19/16 08:13 Dose: 5 mg Oxybutynin Chloride (Oxybutynin) 5 mg PO TID [facility] Last Admin: 07/19/16 08:13 Dose: 5 mg Pantoprazole Sodium (Protonix) 40 mg PO ACBREAKFAST [facility] Last Admin: 07/19/16 08:13 Dose: 40 mg Polyethylene Glycol (Miralax) 17 gm PO DAILY [facility] Prednisone (Prednisone) 5 mg PO DAILY@0800 [facility] Last Admin: 07/19/16 08:13 Dose: 5 mg Quetiapine Fumarate (Seroquel) 100 mg PO BID [facility] Last Admin: 07/19/16 08:13 Dose: 100 mg Valproic Acid (Depakene Syrup) 1,000 mg PO PCBREAKFAST [facility] Last Admin: 07/19/16 08:13 Dose: 1,000 mg Valproic Acid (Depakene Syrup) 2,000 mg PO PCDINNER [facility] Last Admin: 07/18/16 17:25 Dose: 2,000 mg Discontinued Medications Acetaminophen (Tylenol) 650 mg PO NOW ONE Stop: 07/17/16 23:14 Last Admin: 07/17/16 23:25 Dose: 650 mg Furosemide (Lasix) 40 mg PO BIDDIURETIC [facility] Hydrocortisone Sodium Succinate (Solu-Cortef) 100 mg IVPUSH ONETIME ONE Stop: 07/18/16 16:31 Last Admin: 07/18/16 16:41 Dose: 100 mg Sodium Chloride (Normal Saline) 1,000 mls @ 400 mls/hr IV ASDIRECTED [facility] Last Admin: 07/18/16 00:11 Dose: 400 mls/hr Levofloxacin/Dextrose 500 mg/ (Premix) 100 mls @ 100 mls/hr IV ONETIME ONE Stop: 07/18/16 00:51 Last Admin: 07/18/16 00:11 Dose: 100 mls/hr Potassium Chloride 40 meq/ (Premix) 100 mls @ 25 mls/hr IV ONETIME ONE Stop: 07/18/16 05:05 Meropenem 1 gm/ Sodium (Chloride) 50 mls @ 100 mls/hr IV Q8H [facility] Last Admin: 07/18/16 02:32 Dose: 100 mls/hr Sodium Chloride (Normal Saline) 1,000 mls @ 150 mls/hr IV ASDIRECTED [facility] Last Admin: 07/18/16 03:39 Dose: 150 mls/hr Potassium Chloride 20 meq/ (Premix) 100 mls @ 50 mls/hr IV Q2H [facility] Stop: 07/18/16 06:59 Last Admin: 07/18/16 05:31 Dose: 50 mls/hr Tobramycin 570 mg/ Sodium (Chloride) 264.25 mls @ 264.25 mls/hr IV Q24H [facility] Last Admin: 07/18/16 03:49 Dose: 264.25 mls/hr Sodium Chloride (Normal Saline) 1,000 mls @ 500 mls/hr IV ASDIRECTED [facility] Stop: 07/18/16 12:01 Last Admin: 07/18/16 10:06 Dose: 500 mls/hr Sodium Chloride (Normal Saline) 1,000 mls @ 125 mls/hr IV ASDIRECTED [facility] Last Admin: 07/18/16 23:25 Dose: 125 mls/hr Sodium Chloride (Normal Saline) 1,000 mls @ 500 mls/hr IV ASDIRECTED [facility] Stop: 07/18/16 17:01 Last Admin: 07/18/16 15:07 Dose: 500 mls/hr Insulin Aspart (Novolog) 0 unit SUBCUT BIDAC [facility] PRN Reason: Protocol Last Admin: 07/19/16 08:07 Dose: Not Given Lidocaine HCl (Xylocaine-Mpf 1%) 2 ml INJECT Q2H [facility] Stop: 07/18/16 05:00 Last Admin: 07/18/16 05:32 Dose: 2 ml Lorazepam (Ativan) 1 mg PO ONETIME ONE Stop: 07/18/16 01:22 Last Admin: 07/18/16 02:35 Dose: 1 mg Metoprolol Tartrate (Lopressor) 25 mg PO Q12H [facility] Last Admin: 07/18/16 02:35 Dose: 25 mg Metoprolol Tartrate (Lopressor) Confirm Administered Dose 50 mg .ROUTE .STK-MED ONE Stop: 07/18/16 02:23 Last Admin: 07/18/16 02:35 Dose: Not Given - Exam Quality Assessment: No: supplemental oxygen General: alert, cooperative, no acute distress. No: oriented HEENT: Pupils equal Lungs: Clear to auscultation, Normal respiratory effort Cardiovascular: Regular Rate, Regular Rhythm Abdomen: soft, no distension, tenderness (mild right lateral abdomen). No: guarding Extremities: no edema, no cyanosis Skin: warm, dry Psy/Mental Status: alert, anxious - Problem List & Annotations (1) Complicated urinary tract infection SNOMED Code(s): 29788417 Code(s): N39.0 - URINARY TRACT INFECTION, SITE NOT SPECIFIED Status: Acute Current Visit: Yes (2) Severe sepsis SNOMED Code(s): 96217779 Code(s): A41.9 - SEPSIS, UNSPECIFIED ORGANISM; R65.20 - SEVERE SEPSIS WITHOUT SEPTIC SHOCK Status: Acute Current Visit: Yes (3) Paranoid schizophrenia SNOMED Code(s): 39180928 Code(s): F20.0 - PARANOID SCHIZOPHRENIA Status: Acute Current Visit: Yes - Problem List Review Problem List Initiated/Reviewed/Updated: Yes - My Orders Last 24 Hours: My Active Orders 07/18/16 09:53 Dimethicone/Zinc Oxide [Rash Relief-Zinc Oxide [place]] 0 gm TOP ASDIRECTED PRN 07/18/16 15:37 LORazepam [Ativan] 1 mg PO BID PRN OLANZapine [ZyPREXA] 5 mg PO TID PRN 07/18/16 18:00 Valproic Acid [Depakene Syrup] 2,000 mg PO PCDINNER 07/18/16 21:00 Budesonide [Pulmicort] 0.25 mg INH BIDRT Oxybutynin 5 mg PO TID QUEtiapine [SEROquel] 100 mg PO BID 07/18/16 Lunch Mechanical Soft Diet [DIET] 07/19/16 07:30 Pantoprazole [Protonix] 40 mg PO ACBREAKFAST 07/19/16 08:00 predniSONE 5 mg PO DAILY@0800 07/19/16 08:34 Convert IV to Saline Lock [OM.PC] Routine 07/19/16 08:36 Discontinue Telemetry Monitoring [Cardiac Monitoring Discontinue] [RC] Click to Edit 07/19/16 09:00 Enoxaparin [Lovenox] 40 mg SUBCUT DAILY Metoprolol Tartrate [Lopressor] 25 mg PO BID Polyethylene Glycol 3350 [MiraLAX] 17 gm PO DAILY Valproic Acid [Depakene Syrup] 1,000 mg PO PCBREAKFAST 07/19/16 14:00 Furosemide [Lasix] 40 mg PO BIDDIURETIC 07/20/16 05:00 BASIC METABOLIC PANEL,BMP [CHEM] Timed 07/20/16 09:00 Ciprofloxacin [Ciprofloxacin HCl] 500 mg PO BID - Plan Plan:: Assessment and plan - Complicated urinary tract infection with severe sepsis - history of resistant organisms and he is on broad-spectrum antibiotics. 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 good response to fluid challenges yesterday and sepsis has resolved. Culture growing mixed bernard after one day. -Continue tobramycin and meropenem through today, transition to oral medications tomorrow if culture remains negative -restart home blood pressure medications -followup cultures -discontinue cardiac monitoring Chronic paranoid schizophrenia - no major behavior issues at this time but it seems like he has some unusual thinking today. Refusing to take medications this morning. -Encourage him to take usual medications Maintenance issues - - DVT prophylaxis - enoxaparin - GI prophylaxis - proton pump inhibitor - Nutrition - soft diet with thickened liquids - Mondragon catheter - chronic indwelling catheter Disposition - [facility], probably on Sunday Elias Wheeler M.D.
[2016-07-19] MEDS: Polyethylene Glycol 3350 Powder 17 GM Packet PO SCH (14:51)
[2016-07-19] MEDS: Metoprolol Tartrate 25 MG Tab PO SCH ×2 (14:51→20:13)
[2016-07-19] MEDS: Furosemide 40 MG Tab PO SCH (16:02)
[2016-07-19] MEDS: LORazepam 1 MG Tab PO PRN (23:36)
[2016-07-20] MEDS: Budesonide 0.25 MG/2 ML Neb Susp INH SCH ×2 (08:12→22:00)
[2016-07-20] MEDS: Ciprofloxacin 500 MG Tab PO SCH ×2 (14:59→17:12)
[2016-07-20] MEDS: Pantoprazole 40 MG Tab.CR PO SCH (15:00)
[2016-07-20] MEDS: Furosemide 40 MG Tab PO SCH (15:00)
[2016-07-20] MEDS: Valproic Acid 250 MG/5 ML Syrup ML (473 ML Bottle) PO SCH ×2 (15:00→19:17)
[2016-07-20] MEDS: Enoxaparin 40 MG/0.4 ML Syringe SUBCUT SCH (15:00)
[2016-07-20] MEDS: Metoprolol Tartrate 25 MG Tab PO SCH ×2 (15:00→22:00)
[2016-07-20] MEDS: predniSONE 5 MG Tab PO SCH (15:00)
[2016-07-20] MEDS: Polyethylene Glycol 3350 Powder 17 GM Packet PO SCH (15:01)
[2016-07-20] MEDS: QUEtiapine 100 MG Tab PO SCH ×2 (15:01→22:01)
[2016-07-20] MEDS: Oxybutynin 5 MG Tab PO SCH ×2 (15:01→22:00)
--- NOTE | 2016-07-20 16:07 | PCM.PN ---
- General Info Date of Service: 07/20/16 Functional Status: Reports: pain controlled. Denies: ambulating - Review of Systems General: Reports: Weakness. Denies: Fever Systems Review Comment:: no acute events overnight. Yong does not wish to talk to me today and says he just wants to sleep. He has been declining to take his pills as well as eat any food. He says that he is tired and just wants to sleep. Vital signs have been stable. He has not had any fevers. Urine culture still growing mixed bernard with no predominant organism. He does complain of pain in his scrotum with activity he will not allow it to be evaluated at this time. - Patient Data Vitals - most recent: Last Vital Signs Temp 37.3 C 07/20/16 14:42 Pulse 104 H 07/20/16 14:42 Resp 20 07/20/16 14:42 BP 104/84 07/20/16 14:42 Pulse Ox 94 L 07/20/16 08:09 Weight - most recent: 106.277 kg I&O - last 24 hours: Intake & Output 07/20/16 07/20/16 07/20/16 06:59 14:59 22:59 Intake Total 341 Output Total 300 Balance 341 -300 Med Orders - Current: Current Medications Acetaminophen (Tylenol) 650 mg PO Q6H PRN PRN Reason: Fever Albuterol/Ipratropium (Duoneb 3.0-0.5 Mg/3 Ml) 3 ml NEB QID PRN PRN Reason: Shortness Of Breath/wheezing Last Admin: 07/18/16 20:40 Dose: 3 ml Budesonide (Pulmicort) 0.25 mg INH BIDRT [facility] Last Admin: 07/20/16 08:12 Dose: Not Given Ciprofloxacin (Ciprofloxacin Hcl) 500 mg PO BIDAC [facility] Last Admin: 07/20/16 14:59 Dose: Not Given Dimethicone/Zinc Oxide (Rash Relief-Zinc Oxide [place]) 0 gm TOP ASDIRECTED PRN PRN Reason: Rash Last Admin: 07/18/16 13:33 Dose: 1 applic Enoxaparin Sodium (Lovenox) 40 mg SUBCUT DAILY [facility] Last Admin: 07/20/16 15:00 Dose: Not Given Furosemide (Lasix) 40 mg PO BIDDIURETIC [facility] Last Admin: 07/20/16 15:00 Dose: Not Given Promethazine HCl 6.25 mg/ (Sodium Chloride) 50.25 mls @ 200 mls/hr IV Q6H PRN PRN Reason: Nausea/Vomiting Lorazepam (Ativan) 1 mg PO BID PRN PRN Reason: Anxiety Last Admin: 07/19/16 23:36 Dose: 1 mg Metoprolol Tartrate (Lopressor) 25 mg PO BID [facility] Last Admin: 07/20/16 15:00 Dose: Not Given Olanzapine (Zyprexa) 5 mg PO TID PRN PRN Reason: Agitation Last Admin: 07/19/16 08:13 Dose: 5 mg Oxybutynin Chloride (Oxybutynin) 5 mg PO TID [facility] Last Admin: 07/20/16 15:01 Dose: Not Given Pantoprazole Sodium (Protonix) 40 mg PO ACBREAKFAST [facility] Last Admin: 07/20/16 15:00 Dose: Not Given Polyethylene Glycol (Miralax) 17 gm PO DAILY [facility] Last Admin: 07/20/16 15:01 Dose: Not Given Prednisone (Prednisone) 5 mg PO DAILY@0800 [facility] Last Admin: 07/20/16 15:00 Dose: Not Given Quetiapine Fumarate (Seroquel) 100 mg PO BID [facility] Last Admin: 07/20/16 15:01 Dose: Not Given Valproic Acid (Depakene Syrup) 1,000 mg PO PCBREAKFAST [facility] Last Admin: 07/20/16 15:00 Dose: Not Given Valproic Acid (Depakene Syrup) 2,000 mg PO PCDINNER [facility] Last Admin: 07/19/16 21:26 Dose: Not Given Discontinued Medications Acetaminophen (Tylenol) 650 mg PO NOW ONE Stop: 07/17/16 23:14 Last Admin: 07/17/16 23:25 Dose: 650 mg Furosemide (Lasix) 40 mg PO BIDDIURETIC [facility] Hydrocortisone Sodium Succinate (Solu-Cortef) 100 mg IVPUSH ONETIME ONE Stop: 07/18/16 16:31 Last Admin: 07/18/16 16:41 Dose: 100 mg Sodium Chloride (Normal Saline) 1,000 mls @ 400 mls/hr IV ASDIRECTED [facility] Last Admin: 07/18/16 00:11 Dose: 400 mls/hr Levofloxacin/Dextrose 500 mg/ (Premix) 100 mls @ 100 mls/hr IV ONETIME ONE Stop: 07/18/16 00:51 Last Admin: 07/18/16 00:11 Dose: 100 mls/hr Potassium Chloride 40 meq/ (Premix) 100 mls @ 25 mls/hr IV ONETIME ONE Stop: 07/18/16 05:05 Meropenem 1 gm/ Sodium (Chloride) 50 mls @ 100 mls/hr IV Q8H [facility] Last Admin: 07/18/16 02:32 Dose: 100 mls/hr Sodium Chloride (Normal Saline) 1,000 mls @ 150 mls/hr IV ASDIRECTED [facility] Last Admin: 07/18/16 03:39 Dose: 150 mls/hr Potassium Chloride 20 meq/ (Premix) 100 mls @ 50 mls/hr IV Q2H [facility] Stop: 07/18/16 06:59 Last Admin: 07/18/16 05:31 Dose: 50 mls/hr Tobramycin 570 mg/ Sodium (Chloride) 264.25 mls @ 264.25 mls/hr IV Q24H [facility] Last Admin: 07/18/16 03:49 Dose: 264.25 mls/hr Meropenem 1 gm/ Sodium (Chloride) 50 mls @ 100 mls/hr IV Q8H [facility] Stop: 07/20/16 04:00 Last Admin: 07/20/16 03:58 Dose: 100 mls/hr Sodium Chloride (Normal Saline) 1,000 mls @ 500 mls/hr IV ASDIRECTED [facility] Stop: 07/18/16 12:01 Last Admin: 07/18/16 10:06 Dose: 500 mls/hr Sodium Chloride (Normal Saline) 1,000 mls @ 125 mls/hr IV ASDIRECTED [facility] Last Admin: 07/18/16 23:25 Dose: 125 mls/hr Sodium Chloride (Normal Saline) 1,000 mls @ 500 mls/hr IV ASDIRECTED [facility] Stop: 07/18/16 17:01 Last Admin: 07/18/16 15:07 Dose: 500 mls/hr Tobramycin 480 mg/ Sodium (Chloride) 162 mls @ 105 mls/hr IV Q24H [facility] Stop: 07/19/16 18:00 Last Admin: 07/19/16 08:40 Dose: 105 mls/hr Insulin Aspart (Novolog) 0 unit SUBCUT BIDAC [facility] PRN Reason: Protocol Last Admin: 07/19/16 08:07 Dose: Not Given Lidocaine HCl (Xylocaine-Mpf 1%) 2 ml INJECT Q2H [facility] Stop: 07/18/16 05:00 Last Admin: 07/18/16 05:32 Dose: 2 ml Lorazepam (Ativan) 1 mg PO ONETIME ONE Stop: 07/18/16 01:22 Last Admin: 07/18/16 02:35 Dose: 1 mg Metoprolol Tartrate (Lopressor) 25 mg PO Q12H [facility] Last Admin: 07/18/16 02:35 Dose: 25 mg Metoprolol Tartrate (Lopressor) Confirm Administered Dose 50 mg .ROUTE .STK-MED ONE Stop: 07/18/16 02:23 Last Admin: 07/18/16 02:35 Dose: Not Given - Exam Quality Assessment: No: supplemental oxygen General: alert, cooperative, no acute distress. No: oriented Neck: supple Lungs: Normal respiratory effort Abdomen: no distension Extremities: no edema Skin: warm, dry Psy/Mental Status: alert, agitated (mild) - Problem List & Annotations (1) Complicated urinary tract infection SNOMED Code(s): 46364484 Code(s): N39.0 - URINARY TRACT INFECTION, SITE NOT SPECIFIED Status: Acute Current Visit: Yes (2) Severe sepsis SNOMED Code(s): 53507844 Code(s): A41.9 - SEPSIS, UNSPECIFIED ORGANISM; R65.20 - SEVERE SEPSIS WITHOUT SEPTIC SHOCK Status: Acute Current Visit: Yes (3) Paranoid schizophrenia SNOMED Code(s): 63716980 Code(s): F20.0 - PARANOID SCHIZOPHRENIA Status: Acute Current Visit: Yes - Problem List Review Problem List Initiated/Reviewed/Updated: Yes - My Orders Last 24 Hours: My Active Orders 07/20/16 07:30 Ciprofloxacin [Ciprofloxacin HCl] 500 mg PO BIDAC - Plan Plan:: Assessment and plan - Complicated urinary tract infection with severe sepsis - history of resistant organisms and he is on broad-spectrum antibiotics. 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 urine culture with no definite organism and planning to de-escalated antibiotics today. -start ciprofloxacin today -continue home blood pressure medications -followup cultures Chronic paranoid schizophrenia - Refusing to take medications this morning and throughout the day. No other major behavior issues. -Encourage him to take usual medications Maintenance issues - - DVT prophylaxis - enoxaparin - GI prophylaxis - proton pump inhibitor - Nutrition - soft diet with thickened liquids - Mondragon catheter - chronic indwelling catheter Disposition - anticipate discharge back to the shelter after the hospital stay, probably on Sunday Elias Wheleer M.D.
[2016-07-21 07:16] VITALS: BP 125/70
[2016-07-21] MEDS: Budesonide 0.25 MG/2 ML Neb Susp INH SCH (07:28)
[2016-07-21] MEDS: Ciprofloxacin 500 MG Tab PO SCH (08:24)
[2016-07-21] MEDS: Furosemide 40 MG Tab PO SCH (08:28)
[2016-07-21] MEDS: Pantoprazole 40 MG Tab.CR PO SCH (08:28)
[2016-07-21] MEDS: Enoxaparin 40 MG/0.4 ML Syringe SUBCUT SCH (08:28)
[2016-07-21] MEDS: predniSONE 5 MG Tab PO SCH (08:28)
[2016-07-21] MEDS: Valproic Acid 250 MG/5 ML Syrup ML (473 ML Bottle) PO SCH (08:28)
[2016-07-21] MEDS: Metoprolol Tartrate 25 MG Tab PO SCH (08:28)
[2016-07-21] MEDS: Polyethylene Glycol 3350 Powder 17 GM Packet PO SCH (08:29)
[2016-07-21] MEDS: Oxybutynin 5 MG Tab PO SCH (08:30)
[2016-07-21] MEDS: QUEtiapine 100 MG Tab PO SCH (08:31)
[2016-07-21] MEDS ORDERED: Ciprofloxacin in D5W 400 MG in Premix Bag 1 BAG IV ONE ×2 (09:19)
--- NOTE | 2016-07-21 11:43 | PCM.DCSUM1 ---
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 - Discharge Data Discharge Date: 07/21/16 Discharge Disposition: Home, Self-Care 01 Condition: Fair - Discharge Diagnosis/Problem(s) (1) Complicated urinary tract infection SNOMED Code(s): 81492629 ICD Code: N39.0 - URINARY TRACT INFECTION, SITE NOT SPECIFIED Status: Acute Problem Details: complicated UTI with chronic indwelling catheter (2) Severe sepsis SNOMED Code(s): 10847370 ICD Code: A41.9 - SEPSIS, UNSPECIFIED ORGANISM; R65.20 - SEVERE SEPSIS WITHOUT SEPTIC SHOCK Status: Acute (3) Paranoid schizophrenia SNOMED Code(s): 07786189 ICD Code: F20.0 - PARANOID SCHIZOPHRENIA Status: Acute - Patient Summary/Data Consults: Consultations 07/18/16 01:55 Pharmacy Consult [Consult to Pharmacy] [CONS] Routine Comment: Physician Instructions: Quantity: Reason for Consult: please do tobramycin and meropenem. Thanks Hospital Course: Yong presented to the emergency room from a local nursing home with lethargy, fever and confusion. Workup in the emergency room suggested sepsis with a complicated urinary tract infection and chronic indwelling Mondragon catheter. He was started on broad-spectrum antibiotics based on previous antibiotic as well as consideration for his allergies. The morning after admission his blood pressure did dip and he required additional fluid boluses. His lactic acid level had normalized. Blood pressure normalized after additional fluid challenges. Heart rate initially responded to fluids but then did rise after his beta everardo was held. This did respond to fluids and restarting his beta everardo once his blood pressure normalized. Over the next couple of days he showed a fairly quick improvement in his mental status. His urine culture was growing mixed bernard and never did grow a specific bacteria. His main difficulty over the past couple of days has been getting him to take his pills. He says that he made a promise to God and that is why he is not taking his pills. He has been able to take most of them eventually with the use of crushing them and putting them in applesauce. He tolerated the transition to oral medications fairly well. I chose ciprofloxacin based on previous urine cultures with the exception of the Pseudomonas which did not grow in culture this time. He has tolerated the transition fairly well. No pain fevers. Clinically he has remained stable. The plan at this time is for discharge back to his nursing home. He'll get ciprofloxacin for 9 additional days. We did change his Mondragon catheter although he was here. Followup can be as needed. - Patient Instructions Diet: Regular Diet as Tolerated, Mechanical Soft Diet, Other: thickened liquids Activity: As Tolerated Showering/Bathing: May Shower Notify Provider of: Fever, Increased Pain, Nausea and/or Vomiting Other/Special Instructions: 1. You were in the hospital for management of a complicated urinary tract infection. We did not determine the cause of bacteria with your urine culture and I recommend 9 additional days of antibiotic therapy with ciprofloxacin. You should continue to have your Mondragon catheter changed on a regular basis as previously scheduled. 2. Please continue your usual medications as previously prescribed. 3. Please continue your usual diet with thickened liquids. 4. Please seek medical attention if you develop fever greater than 101, worsening abdominal pain, or nausea with vomiting - Discharge Plan Prescriptions/Med Rec: Ciprofloxacin [Ciprofloxacin HCl] 500 mg PO BID #18 tab Home Medications: Home Meds Acetaminophen [Tylenol] 650 mg PO TID 01/05/13 [History] Bisacodyl [Dulcolax] 10 mg RECTAL DAILY PRN 01/05/13 [History] Docusate Sodium 10 ml PO BID 01/05/13 [History] Furosemide [Lasix] 40 mg PO BID 01/05/13 [History] Ketoconazole 1 appful TOP ASDIRECTED 01/05/13 [History] LORazepam 1 mg PO BID PRN 01/05/13 [History] Loratadine [Claritin] 10 mg PO DAILY 01/05/13 [History] OLANZapine [ZyPREXA] 5 mg PO TID PRN 01/05/13 [History] Omeprazole 20 mg PO DAILY 01/05/13 [History] Polyethylene Glycol 3350 [MiraLAX] 17 gm PO DAILY 01/05/13 [History] Psyllium Husk/Aspartame [Metamucil Sugar Free Powder] 2 tsp PO DAILY 01/05/13 [ History] Simvastatin [Zocor] 20 mg PO BEDTIME 01/05/13 [History] Terbinafine [LamISIL AT 1% Crm] 1 percent TOP ASDIRECTED PRN 01/05/13 [History] Triamcinolone Acetonide [Triamcinolone Acetonide 0.1% Crm] 15 gm TOP DAILY PRN 01/05/13 [History] Oxybutynin 5 mg PO TID 04/17/15 [History] predniSONE [Prednisone] 5 mg PO DAILY 04/17/15 [History] Magnesium Hydroxide [Milk of Magnesia] 30 ml PO DAILY PRN 09/25/15 [History] Na Phos,M-B/Na Phos,Di-Ba [Fleet Enema] 1 enema RECTAL BID PRN 02/05/16 [History ] Zinc Oxide/Aloe Vera/Vitamin E [Balmex 11.3% Diaper Rash] 1 gm TP BID 02/05/16 [ History] Albuterol/Ipratropium [DuoNeb 3.0-0.5 MG/3 ML] 3 ml INH TID 05/31/16 [History] Budesonide [Pulmicort] 0.25 mg INH BID 05/31/16 [History] Metoprolol Tartrate 25 mg PO BID 05/31/16 [History] Valproic Acid (As Sodium Salt) [Valproic Acid] 20 ml PO PCBREAKFAST 05/31/16 [ History] Valproic Acid (As Sodium Salt) [Valproic Acid] 40 ml PO PCDINNER 05/31/16 [ History] QUEtiapine [SEROquel] 100 mg PO BID 07/17/16 [History] Ketoconazole [Nizoral 2% Crm] 1 applic TOP BID 07/18/16 [History] Ciprofloxacin [Ciprofloxacin HCl] 500 mg PO BID #18 tab 07/21/16 [Rx] Patient Handouts: Urinary Tract Infection, Adult, [id number] Referrals: PCP,None [Primary Care Provider] - (f/u with your primary care provider if symptoms do not continue to get better or they get worse) - Discharge Summary/Plan Comment DC Time >30 min.: No (25) - Patient Data Vitals - Most Recent: Last Vital Signs Temp 37.4 C 07/21/16 07:00 Pulse 84 07/21/16 03:00 Resp 18 07/21/16 07:00 BP 125/70 07/21/16 07:00 Pulse Ox 91 L 07/21/16 07:00 Weight - Most Recent: 106.277 kg I&O - Last 24 hours: Intake & Output 07/20/16 07/21/16 07/21/16 22:59 06:59 14:59 Intake Total 100 0 Output Total 725 400 Balance -625 -400 Med Orders - Current: Current Medications Acetaminophen (Tylenol) 650 mg PO Q6H PRN PRN Reason: Fever Albuterol/Ipratropium (Duoneb 3.0-0.5 Mg/3 Ml) 3 ml NEB QID PRN PRN Reason: Shortness Of Breath/wheezing Last Admin: 07/18/16 20:40 Dose: 3 ml Budesonide (Pulmicort) 0.25 mg INH BIDRT [facility] Last Admin: 07/21/16 07:28 Dose: Not Given Dimethicone/Zinc Oxide (Rash Relief-Zinc Oxide [place]) 0 gm TOP ASDIRECTED PRN PRN Reason: Rash Last Admin: 07/18/16 13:33 Dose: 1 applic Enoxaparin Sodium (Lovenox) 40 mg SUBCUT DAILY [facility] Last Admin: 07/21/16 08:28 Dose: Not Given Furosemide (Lasix) 40 mg PO BIDDIURETIC [facility] Last Admin: 07/21/16 08:28 Dose: Not Given Promethazine HCl 6.25 mg/ (Sodium Chloride) 50.25 mls @ 200 mls/hr IV Q6H PRN PRN Reason: Nausea/Vomiting Lorazepam (Ativan) 1 mg PO BID PRN PRN Reason: Anxiety Last Admin: 07/19/16 23:36 Dose: 1 mg Metoprolol Tartrate (Lopressor) 25 mg PO BID [facility] Last Admin: 07/21/16 08:28 Dose: Not Given Olanzapine (Zyprexa) 5 mg PO TID PRN PRN Reason: Agitation Last Admin: 07/19/16 08:13 Dose: 5 mg Oxybutynin Chloride (Oxybutynin) 5 mg PO TID [facility] Last Admin: 07/21/16 08:30 Dose: Not Given Pantoprazole Sodium (Protonix) 40 mg PO ACBREAKFAST [facility] Last Admin: 07/21/16 08:28 Dose: Not Given Polyethylene Glycol (Miralax) 17 gm PO DAILY [facility] Last Admin: 07/21/16 08:29 Dose: 17 gm Prednisone (Prednisone) 5 mg PO DAILY@0800 [facility] Last Admin: 07/21/16 08:28 Dose: Not Given Quetiapine Fumarate (Seroquel) 100 mg PO BID [facility] Last Admin: 07/21/16 08:31 Dose: 100 mg Valproic Acid (Depakene Syrup) 1,000 mg PO PCBREAKFAST [facility] Last Admin: 07/21/16 08:28 Dose: Not Given Valproic Acid (Depakene Syrup) 2,000 mg PO PCDINNER [facility] Last Admin: 07/20/16 19:17 Dose: Not Given Discontinued Medications Acetaminophen (Tylenol) 650 mg PO NOW ONE Stop: 07/17/16 23:14 Last Admin: 07/17/16 23:25 Dose: 650 mg Ciprofloxacin (Ciprofloxacin Hcl) 500 mg PO BIDAC [facility] Last Admin: 07/21/16 08:24 Dose: 500 mg Furosemide (Lasix) 40 mg PO BIDDIURETIC [facility] Hydrocortisone Sodium Succinate (Solu-Cortef) 100 mg IVPUSH ONETIME ONE Stop: 07/18/16 16:31 Last Admin: 07/18/16 16:41 Dose: 100 mg Sodium Chloride (Normal Saline) 1,000 mls @ 400 mls/hr IV ASDIRECTED [facility] Last Admin: 07/18/16 00:11 Dose: 400 mls/hr Levofloxacin/Dextrose 500 mg/ (Premix) 100 mls @ 100 mls/hr IV ONETIME ONE Stop: 07/18/16 00:51 Last Admin: 07/18/16 00:11 Dose: 100 mls/hr Potassium Chloride 40 meq/ (Premix) 100 mls @ 25 mls/hr IV ONETIME ONE Stop: 07/18/16 05:05 Meropenem 1 gm/ Sodium (Chloride) 50 mls @ 100 mls/hr IV Q8H [facility] Last Admin: 07/18/16 02:32 Dose: 100 mls/hr Sodium Chloride (Normal Saline) 1,000 mls @ 150 mls/hr IV ASDIRECTED [facility] Last Admin: 07/18/16 03:39 Dose: 150 mls/hr Potassium Chloride 20 meq/ (Premix) 100 mls @ 50 mls/hr IV Q2H [facility] Stop: 07/18/16 06:59 Last Admin: 07/18/16 05:31 Dose: 50 mls/hr Tobramycin 570 mg/ Sodium (Chloride) 264.25 mls @ 264.25 mls/hr IV Q24H [facility] Last Admin: 07/18/16 03:49 Dose: 264.25 mls/hr Meropenem 1 gm/ Sodium (Chloride) 50 mls @ 100 mls/hr IV Q8H [facility] Stop: 07/20/16 04:00 Last Admin: 07/20/16 03:58 Dose: 100 mls/hr Sodium Chloride (Normal Saline) 1,000 mls @ 500 mls/hr IV ASDIRECTED [facility] Stop: 07/18/16 12:01 Last Admin: 07/18/16 10:06 Dose: 500 mls/hr Sodium Chloride (Normal Saline) 1,000 mls @ 125 mls/hr IV ASDIRECTED [facility] Last Admin: 07/18/16 23:25 Dose: 125 mls/hr Sodium Chloride (Normal Saline) 1,000 mls @ 500 mls/hr IV ASDIRECTED [facility] Stop: 07/18/16 17:01 Last Admin: 07/18/16 15:07 Dose: 500 mls/hr Tobramycin 480 mg/ Sodium (Chloride) 162 mls @ 105 mls/hr IV Q24H [facility] Stop: 07/19/16 18:00 Last Admin: 07/19/16 08:40 Dose: 105 mls/hr Insulin Aspart (Novolog) 0 unit SUBCUT BIDAC [facility] PRN Reason: Protocol Last Admin: 07/19/16 08:07 Dose: Not Given Lidocaine HCl (Xylocaine-Mpf 1%) 2 ml INJECT Q2H [facility] Stop: 07/18/16 05:00 Last Admin: 07/18/16 05:32 Dose: 2 ml Lorazepam (Ativan) 1 mg PO ONETIME ONE Stop: 07/18/16 01:22 Last Admin: 07/18/16 02:35 Dose: 1 mg Metoprolol Tartrate (Lopressor) 25 mg PO Q12H [facility] Last Admin: 07/18/16 02:35 Dose: 25 mg Metoprolol Tartrate (Lopressor) Confirm Administered Dose 50 mg .ROUTE .STK-MED ONE Stop: 07/18/16 02:23 Last Admin: 07/18/16 02:35 Dose: Not Given *Q Meaningful Use (DIS) - VTE *Q VTE Criteria *Q: - Stroke *Q Stroke Criteria *Q: - AMI *Q AMI Criteria *Q:
== END 2016-07-21 13:46 | disposition home or self-care (01) | DRG 872 ==
LOC: JP.ED 22:25 → JP.ICU 07-18 00:59 → JP.MS 07-19 09:45
PROVIDERS: ADMIT Family Medicine; ATTEND Internal Medicine
DX: A41.9 Sepsis, unspecified organism (principal); I47.1 Supraventricular tachycardia; N39.0 Urinary tract infection, site not specified; T83.511A Infection and inflammatory reaction due to indwelling urethral catheter, initial encounter; F20.0 Paranoid schizophrenia; R65.20 Severe sepsis without septic shock; E86.0 Dehydration; I50.9 Heart failure, unspecified; I11.0 Hypertensive heart disease with heart failure; E87.6 Hypokalemia; Z66 Do not resuscitate; Z87.891 Personal history of nicotine dependence; E78.5 Hyperlipidemia, unspecified; F41.9 Anxiety disorder, unspecified; K59.09 Other constipation; Z99.81 Dependence on supplemental oxygen; G47.33 Obstructive sleep apnea (adult) (pediatric); K21.9 Gastro-esophageal reflux disease without esophagitis; H54.7 Unspecified visual loss; Z87.440 Personal history of urinary (tract) infections; J30.9 Allergic rhinitis, unspecified; Z85.828 Personal history of other malignant neoplasm of skin; Z79.52 Long term (current) use of systemic steroids; Z88.1 Allergy status to other antibiotic agents; Z88.0 Allergy status to penicillin
CPT/HCPCS: 36415; 71010 ×2; 80053; 81001; 83880; 85025; 86140; 87040 ×2; 87804 ×2; 93005; 93010; 96365; 99285 ×2; A9270; J1956; J7040; 80048; 80200; 82962; 83605; 83735; 84484; 85027; 87086; 94640-76; 96361; J1650; J1720; J2185; J3260; J3480; J7050; J7620; J7634